=== PATIENT | male | born 1975 | race Caucasian/White ===

== ENCOUNTER 2017-11-14 14:01 | Emergency (ER) | payer MEDICAID ==
[~2017-11-14] VITALS: Ht 180.3 cm; Wt 81.8 kg
[2017-11-14] MEDS ORDERED: LIDOCAINE HCL 1% 10 ML VIAL INJ ONE (16:30)
[2017-11-14 17:30] VITALS: BP 122/74
[2017-11-14] MEDS ORDERED: PERTUSS(ACELL),DIPH,TET VAC/PF 0.5 ML VIAL IM ONE (18:00)
== END 2017-11-14 18:10 | disposition home or self-care (01) ==
LOC: EMS 14:01
DX: S61.511A Laceration without foreign body of right wrist, initial encounter (principal); W26.0XXA Contact with knife, initial encounter; Y93.89 Activity, other specified; Y92.89 Other specified places as the place of occurrence of the external cause; Y99.8 Other external cause status
CPT/HCPCS: 12002; 73100; 90471; 90715; 99284; J3490